=== PATIENT | male | born 1995 | race Caucasian/White ===

== ENCOUNTER 2021-05-29 02:50 | Emergency (ER) | payer MEDICAID ==
[~2021-05-29] VITALS: Ht 170.2 cm; Wt 56.7 kg
[2021-05-29 02:55] VITALS: BP_SYST 130
[2021-05-29 06:07] VITALS: BP_SYST 121
== END 2021-05-29 06:07 | disposition home or self-care (01) ==
LOC: SED 02:50
DX: T67.5XXA Heat exhaustion, unspecified, initial encounter (principal); X58.XXXA Exposure to other specified factors, initial encounter; Y93.89 Activity, other specified; Y92.89 Other specified places as the place of occurrence of the external cause; Y99.8 Other external cause status
CPT/HCPCS: 99281